=== PATIENT | male | born 1950 | race Caucasian/White ===

== ENCOUNTER → 2017-02-08 | Day surgery (SDC) | payer MEDICARE ==
[2017-02-08 07:10] LABS: HCT 43.3 % (42.0-52.0); HGB 14.8 g/dl (13.2-18.0); MCH 31.6 pg (25.0-31.0); MCHC 34.2 g/dL (32.0-36.0); MCV 92.5 fL (78.0-100.0); MPV 9.3 fL (6.0-9.5); RBC 4.68 M/uL (4.70-6.00); RDW 13.2 % (11.5-14.0); WBC 6.5 K/uL (4.0-10.5)
[2017-02-08 07:31] LABS: ALBUMIN 4.6 g/dL (3.4-4.8); BILIRUBIN - TOTAL 0.5 mg/dL (0.1-1.0); CREATININE 1.1 mg/dL (0.7-1.2); GLOBULIN (CALCULATION) 2.4 g/dL (2.2-4.2); POTASSIUM 4.4 mmol/L (3.5-5.1)
== END | disposition home or self-care (01) ==
LOC: FAS 02-01 09:00
PROVIDERS: Surgery
DX: Z12.11 Encounter for screening for malignant neoplasm of colon (principal); K57.30 Diverticulosis of large intestine without perforation or abscess without bleeding; I10 Essential (primary) hypertension; E11.9 Type 2 diabetes mellitus without complications; Z79.899 Other long term (current) drug therapy; Z98.890 Other specified postprocedural states
CPT/HCPCS: 36415; 80053; J2704